=== PATIENT | male | born 1945 | race Hispanic/Latino ===

== ENCOUNTER 2017-08-06 18:54 | Inpatient (IN) | payer MEDICARE ==
[~2017-08-06] VITALS: Ht 167.6 cm; Wt 71.0 kg
[2017-08-06 19:26] LABS: BASOPHILS % (AUTO) 0.4 % (0.0-5.0); EOSINOPHILS % (AUTO) 0.5 % (0.0-8.0); HEMATOCRIT 31.8 % (42-54); LYMPHOCYTES % (AUTO) 23.7 % (21.0-51.0); MEAN CORPUSCULAR HEMOGLOBIN 30.1 pg (27.0-33.0); MEAN CORPUSCULAR HGB CONC 35.8 g/dL (32.0-36.0); MEAN CORPUSCULAR VOLUME 84.1 fL (79-99); MONOCYTES % (AUTO) 7.5 % (3.0-13.0); NEUTROPHILS % (AUTO) 67.9 % (40.0-77.0); PLATELET COUNT (AUTO) 224 K/uL (130-400); RED BLOOD CELL COUNT(AUTO) 3.78 MIL/uL (4.50-6.20); RED CELL DISTRIBUTION WIDTH 13.6 % (11.0-15.5); WHITE BLOOD COUNT (AUTO) 7.4 K/uL (4.8-10.8)
[2017-08-06 19:34] LABS: APPEARANCE,URINE Clear (CLEAR); BILIRUBIN,URINE Negative (NEGATIVE); COLOR,URINE Yellow (YELLOW); GLUCOSE, URINE (UA) Negative (NEGATIVE); KETONES,URINE Trace mg/dL (NEGATIVE); LEUKOCYTE ESTERASE ,URINE Negative (NEGATIVE); NITRATE,URINE Negative (NEGATIVE); OCCULT BLOOD,URINE Negative (NEGATIVE); PROTEIN,URINE Negative (NEGATIVE); UROBILINOGEN,URINE 0.2 mg/dL (0.2-1.0)
[2017-08-06 19:40] LABS: CARBON DIOXIDE 34 mmol/L (21-32); CHLORIDE 92 mmol/L (101-111); CREATININE 0.7 mg/dL (0.5-1.5); GLOMERULAR FILTR. RATE CALC 117 mL/min (>60); GLUCOSE,RANDOM 155 mg/dL (70-105); POTASSIUM 3.1 mmol/L (3.5-5.1); SODIUM SERUM 132 mmol/L (136-145); UREA NITROGEN, BLOOD 8 mg/dL (7-18)
[2017-08-06 19:44] LABS: ALANINE AMINOTRANSFERASE 14 U/L (12-78); ALBUMIN 3.8 g/dL (3.5-5.0); ASPARTATE AMINOTRANSFERASE 13 U/L (10-37); BILIRUBIN,TOTAL 0.6 mg/dL (0.2-1.0); CREATINE KINASE, TOTAL 31 U/L (21-232); TOTAL PROTEIN, SERUM 7.3 g/dL (6.0-8.3)
[2017-08-06 19:46] LABS: INR 0.94 (0.85-1.15); PARTIAL THROMBOPLASTIN TIME 28.5 SEC (26.3-35.5); PROTHROMBIN TIME 9.9 SEC (9.6-11.6)
[2017-08-06 19:47] LABS: LIPASE < 50 U/L (114-286)
[2017-08-06 19:48] LABS: B-TYPE NATRIURETIC PEPTIDE 45 pg/mL (0-100)
[2017-08-06] MEDS ORDERED: POTASSIUM CHLORIDE 20 MEQ ERTAB PO ONE (19:51)
[2017-08-06] MEDS ORDERED: ZOSYN 3.375GM+NS 50ML 50 ML IV ONE (19:52)
[2017-08-06] MEDS ORDERED: SODIUM CHLORIDE 0.9% 1000ML 1,000 ML IV ONE (19:52)
[2017-08-06 19:57] LABS: RAPID GROUP A STREP NEGATIVE (NEGATIVE)
[2017-08-06 20:08] LABS: ABG BASE EXCESS 7.1 mmol/L (-2.0-3.0); ABG HCO3 33.2 mmol/L (21.0-28.0); ABG OXYGEN SATURATION 95.5 % (95.0-99.0); ABG PCO2 52 mmHg (35-48)
[2017-08-06 20:23] LABS: CREATINE KINASE MB 0.5 ng/mL (0.5-3.6)
[2017-08-06] MEDS ORDERED: ENOXAPARIN SODIUM 30 MG/0.3 ML SQ ONE (22:50)
[2017-08-06] MEDS ORDERED: LEVOFLOXACIN 500 MG/D5W 100 ML 100 ML ONE (22:50)
[2017-08-07 03:22] VITALS: BP 152/75
[2017-08-07 04:35] LABS: HEMATOCRIT 31.1 % (42-54); MEAN CORPUSCULAR HEMOGLOBIN 28.7 pg (27.0-33.0); MEAN CORPUSCULAR HGB CONC 34.2 g/dL (32.0-36.0); MEAN CORPUSCULAR VOLUME 83.9 fL (79-99); NUCLEATED RED BLOOD CELLS 0.1 % (0.0-0.19); PLATELET COUNT (AUTO) 241 K/uL (130-400)
[2017-08-07 04:38] LABS: CREATININE 0.6 mg/dL (0.5-1.5); POTASSIUM 3.4 mmol/L (3.5-5.1)
[2017-08-07] MEDS ORDERED: AZIT250T9 PO (05:18)
[2017-08-07] MEDS ORDERED: HYDR12.54 PO (05:18)
[2017-08-07] MEDS ORDERED: SERT50TA12 PO (05:18)
[2017-08-07] MEDS ORDERED: AMLO10TA2 PO (05:18)
[2017-08-07] MEDS ORDERED: MIRT15TA6 PO (05:18)
[2017-08-07] MEDS ORDERED: ATOR10 PO (05:18)
[2017-08-07] MEDS ORDERED: MEMA14CA PO (05:18)
[2017-08-07] MEDS ORDERED: ASPI1CPM8 PO (05:18)
[2017-08-07] MEDS ORDERED: BACL10TA PO (05:18)
[2017-08-07] MEDS ORDERED: METF10004 PO (05:18)
[2017-08-07] MEDS ORDERED: TAMS0.4C32 PO (05:18)
[2017-08-07] MEDS ORDERED: GUAI1TBM19 PO (05:18)
[2017-08-07] MEDS ORDERED: LIDOCAINE HCL-MPF 1% 2ML VIAL IVP PRN (07:00)
[2017-08-07] MEDS ORDERED: GLUCAGON 1MG KIT 1 MG ML IM PRN (07:00)
[2017-08-07] MEDS ORDERED: DEXTROSE 50%-WATER 50 ML DISP.SYRIN IV PRN (07:00)
[2017-08-07] MEDS ORDERED: POTASSIUM CHLORIDE 20MEQ/100ML 100 ML IV PRN (07:00)
[2017-08-07] MEDS: INSULIN HUMULIN R 100 UNIT/ML 3ML SQ SCH ×4 (07:30→21:00)
[2017-08-07 08:00] VITALS: BP 144/67
[2017-08-07] MEDS ORDERED: AZITHROMYCIN 250 MG TABLET PO SCH (08:47)
[2017-08-07] MEDS: ENOXAPARIN SODIUM 30 MG/0.3 ML SQ SCH ×2 (09:00→11:38)
[2017-08-07] MEDS: MEMANTINE HCL 14 MG PO SCH (09:00)
[2017-08-07] MEDS: ZOSYN 3.375GM+NS 50ML 50 ML IV SCH ×3 (11:23→18:42)
[2017-08-07] MEDS: METFORMIN HCL 500 MG TABLET PO SCH ×2 (11:24→16:36)
[2017-08-07] MEDS: AMLODIPINE BESYLATE 5 MG TAB PO SCH (11:24)
[2017-08-07] MEDS: HYDROCHLOROTHIAZIDE 25 MG TABLET PO SCH (11:25)
[2017-08-07] MEDS: TAMSULOSIN HCL 0.4 MG CAP.ER.24H PO SCH (11:27)
[2017-08-07] MEDS: SODIUM CHLORIDE 0.9% 1000ML 1,000 ML IV SCH (11:36)
[2017-08-07] MEDS: GUAIFENESIN/DEXTROMETHORPHAN 1 EACH TAB.SR.12H PO SCH ×2 (11:36→22:01)
[2017-08-07] MEDS: DIPYRIDAMOLE PO SCH ×2 (11:37→22:00)
[2017-08-07] MEDS: [UNRECOGNIZED DRUG - OTHER] PO SCH ×2 (11:37→22:00)
[2017-08-07] MEDS: ASPIRIN PO SCH ×2 (11:37→22:00)
[2017-08-07] MEDS ORDERED: UMEC1DIS IH (11:54)
[2017-08-07] MEDS ORDERED: LEVA15HF3 IH (11:54)
[2017-08-07] MEDS ORDERED: ALBU8.5H8 IH (11:54)
[2017-08-07] MEDS ORDERED: TRAM50TA4 PO (11:54)
[2017-08-07 12:16] VITALS: BP 153/63
[2017-08-07 16:00] VITALS: BP 124/66
[2017-08-07] MEDS: POTASSIUM CHLORIDE 10% ELIXIR 20 MEQ/15 ML UDCUP PO PRN ×2 (18:20→22:30)
[2017-08-07 19:00] VITALS: BP 137/71
[2017-08-07] MEDS: ATORVASTATIN CALCIUM 10 MG TABLET PO SCH (22:01)
[2017-08-07] MEDS: LEVOFLOXACIN 500 MG/D5W 100 ML 100 ML IV SCH (22:10)
[2017-08-07 23:15] VITALS: BP 108/51
[2017-08-08 03:16] VITALS: BP 110/62
[2017-08-08 05:06] LABS: HEMATOCRIT 30.5 % (42-54); MEAN CORPUSCULAR HEMOGLOBIN 30.3 pg (27.0-33.0); MEAN CORPUSCULAR HGB CONC 35.9 g/dL (32.0-36.0); MEAN CORPUSCULAR VOLUME 84.4 fL (79-99); PLATELET COUNT (AUTO) 221 K/uL (130-400); RED BLOOD CELL COUNT(AUTO) 3.62 MIL/uL (4.50-6.20); WHITE BLOOD COUNT (AUTO) 7.2 K/uL (4.8-10.8)
[2017-08-08 05:18] LABS: ALBUMIN 3.3 g/dL (3.5-5.0); BILIRUBIN,TOTAL 0.8 mg/dL (0.2-1.0); CREATININE 0.7 mg/dL (0.5-1.5); POTASSIUM 3.2 mmol/L (3.5-5.1); TOTAL PROTEIN, SERUM 6.4 g/dL (6.0-8.3)
[2017-08-08] MEDS: INSULIN HUMULIN R 100 UNIT/ML 3ML SQ SCH ×4 (06:14→20:35)
[2017-08-08] MEDS: ZOSYN 3.375GM+NS 50ML 50 ML IV SCH ×3 (06:14→20:34)
[2017-08-08 08:00] VITALS: BP 155/72
[2017-08-08] MEDS: POTASSIUM CHLORIDE 20 MEQ ERTAB PO PRN ×3 (08:03→12:44)
[2017-08-08] MEDS: METFORMIN HCL 500 MG TABLET PO SCH ×2 (08:03→18:24)
[2017-08-08] MEDS: TAMSULOSIN HCL 0.4 MG CAP.ER.24H PO SCH (09:48)
[2017-08-08] MEDS: [UNRECOGNIZED DRUG - OTHER] PO SCH ×2 (09:48→20:34)
[2017-08-08] MEDS: ASPIRIN PO SCH ×2 (09:48→20:34)
[2017-08-08] MEDS: GUAIFENESIN/DEXTROMETHORPHAN 1 EACH TAB.SR.12H PO SCH ×2 (09:48→20:34)
[2017-08-08] MEDS: DIPYRIDAMOLE PO SCH ×2 (09:48→20:34)
[2017-08-08] MEDS: AMLODIPINE BESYLATE 5 MG TAB PO SCH (09:49)
[2017-08-08] MEDS: HYDROCHLOROTHIAZIDE 25 MG TABLET PO SCH (09:49)
[2017-08-08] MEDS: MEMANTINE HCL 14 MG PO SCH (09:56)
[2017-08-08 11:07] VITALS: BP 136/74
[2017-08-08 15:55] VITALS: BP 141/68
[2017-08-08] MEDS: SODIUM CHLORIDE 0.9% 1000ML 1,000 ML IV SCH ×2 (18:30→23:00)
[2017-08-08 19:47] VITALS: BP 138/68
[2017-08-08] MEDS: ATORVASTATIN CALCIUM 10 MG TABLET PO SCH (20:34)
[2017-08-09] VITALS: BP 134/67
[2017-08-09] MEDS: LEVOFLOXACIN 500 MG/D5W 100 ML 100 ML IV SCH (00:52)
[2017-08-09 04:00] VITALS: BP 134/74
[2017-08-09] MEDS: ZOSYN 3.375GM+NS 50ML 50 ML IV SCH (06:21)
[2017-08-09] MEDS: INSULIN HUMULIN R 100 UNIT/ML 3ML SQ SCH ×2 (06:21→11:30)
[2017-08-09 08:00] VITALS: BP 144/70
[2017-08-09] MEDS: TAMSULOSIN HCL 0.4 MG CAP.ER.24H PO SCH (08:58)
[2017-08-09] MEDS: DIPYRIDAMOLE PO SCH (08:58)
[2017-08-09] MEDS: [UNRECOGNIZED DRUG - OTHER] PO SCH (08:58)
[2017-08-09] MEDS: ASPIRIN PO SCH (08:58)
[2017-08-09] MEDS: METFORMIN HCL 500 MG TABLET PO SCH (08:59)
[2017-08-09] MEDS: AMLODIPINE BESYLATE 5 MG TAB PO SCH (08:59)
[2017-08-09] MEDS: HYDROCHLOROTHIAZIDE 25 MG TABLET PO SCH (08:59)
[2017-08-09] MEDS: MEMANTINE HCL 14 MG PO SCH (09:00)
[2017-08-09] MEDS: GUAIFENESIN/DEXTROMETHORPHAN 1 EACH TAB.SR.12H PO SCH (09:03)
[2017-08-09 11:00] VITALS: BP 146/70
[2017-08-09] MEDS ORDERED: LEVO500T2 PO (13:06)
== END 2017-08-09 15:45 | disposition home or self-care (01) | DRG 70 ==
LOC: EDH 18:54 → OBSVTOIN 21:32 → EDHIP 21:32 → 3AH 08-07 02:54 → 3DH 08-07 22:47
PROVIDERS: ADMIT Family Medicine; ATTEND Family Medicine
DX: G93.40 Encephalopathy, unspecified (principal); J96.20 Acute and chronic respiratory failure, unspecified whether with hypoxia or hypercapnia; J18.9 Pneumonia, unspecified organism; R44.3 Hallucinations, unspecified; E11.9 Type 2 diabetes mellitus without complications; G30.9 Alzheimer's disease, unspecified; F02.80 Dementia in other diseases classified elsewhere, unspecified severity, without behavioral disturbance, psychotic disturbance, mood disturbance, and anxiety; E78.5 Hyperlipidemia, unspecified; I10 Essential (primary) hypertension; I25.10 Atherosclerotic heart disease of native coronary artery without angina pectoris; F41.9 Anxiety disorder, unspecified; N40.0 Benign prostatic hyperplasia without lower urinary tract symptoms; T50.905A Adverse effect of unspecified drugs, medicaments and biological substances, initial encounter; Y92.89 Other specified places as the place of occurrence of the external cause; Z99.81 Dependence on supplemental oxygen
CPT/HCPCS: 36415; 36600; 70450; 71045; 80048; 80053; 81003; 82550; 82553; 82803; 82948; 83605; 83690; 83874; 83880; 84132; 84484; 85025; 85027; 85610; 85730; 87040; 87088; 87804; 87880; 93005; J1650; J1956; J2543; J7030